=== PATIENT | male | born 1965 | race Caucasian/White ===

== ENCOUNTER 2020-05-26 12:29 | Outpatient (CLI) | payer OTHER, SELFPAY ==
--- NOTE | ~2020-05-26 | US_ITS ---
EXAMINATION:US venous doppler LE LT INDICATION:Left leg pain TECHNIQUE: Multiple grayscale, color flow and Doppler images of the left lower extremity deep venous systems were obtained and reviewed. COMPARISON:No prior studies for comparison. FINDINGS: The common femoral, superficial femoral and popliteal veins demonstrate normal respiratory variation, augmentation and compressibility. Color flow is also seen within the posterior tibial, pe roneal, greater saphenous and profunda veins. IMPRESSION: 1: No lower extremity deep venous thrombosis. Reviewed, dictated and finalized at location B.
== END 2020-05-26 12:30 | disposition home or self-care (01) ==
PROVIDERS: PCP Nurse Practitioner Family; Visit Provider Nurse Practitioner Family
DX: M79.605 Pain in left leg (principal)
CPT/HCPCS: 93971

== ENCOUNTER 2021-04-17 11:37 | Outpatient (CLI) | payer OTHER, SELFPAY ==
--- NOTE | ~2021-04-17 | XR_ITS ---
EXAMINATION: XR hip LT min 2V DATE: 04/17/2021 12:13 INDICATION: Left hip pain TECHNIQUE: Anteroposterior and frog-leg lateral views of the left hip were obtained. COMPARISON: None. FINDINGS: Alignment is normal. No fracture or suspected avascular necrosis. Left hip joint space is normal. Mil d bilateral sacroiliac osteoarthritis. Soft tissues are unremarkable. IMPRESSION: 1. Normal left hip. 2. Mild bilateral sacroiliac osteoarthritis. Reviewed, dictated and finalized at location A. [employer]
--- NOTE | ~2021-04-17 | XR_ITS ---
XR lumbar spine 2-3V DATE: 04/17/2021 12:13 INDICATION: Low back pain following fall 1 week ago TECHNIQUE: AP, lateral and coned lateral lumbosacral views COMPARISON: 06/15/2018 lumbar spine FINDINGS: Surgical clips, right upper quadrant, consistent with cholecystectomy. No fracture or bone destruction. The lumbar pedicles are intact. No spondylolisthesis. There is moderate degenerative disc disease at L1-2 and L3-4, mild degenerative disc disease at L4-5. The sacroiliac joints are normal. IMPRESSION: Mild to moderate degenerative disc disease Reviewed, dictated and finalized at location B. WEAVER
== END 2021-04-17 11:38 | disposition home or self-care (01) ==
PROVIDERS: PCP Family Medicine; Visit Provider Physician Assistant
DX: M16.12 Unilateral primary osteoarthritis, left hip (principal); M47.817 Spondylosis without myelopathy or radiculopathy, lumbosacral region
CPT/HCPCS: 72100; 73502

== ENCOUNTER 2022-05-07 09:59 | Emergency (ER) | payer OTHER, SELFPAY ==
--- NOTE | 2022-05-07 10:05 | ED.SKABFB ---
HPI - Skin/Abscess/Foreign Bdy General Chief complaint: Skin/Abscess/Foreign Body Stated complaint: spider bite Time Seen by Provider: 05/07/22 10:10 Source: patient Mode of arrival: ambulatory Limitations: no limitations History of Present Illness HPI narrative: Getachew is a 57-year-old male patient presenting to the clinic today with complaints of possible spider bite to his right elbow, right upper leg, and left 3rd middle finger. He reports symptoms started approximately 4 days ago and seemed to be spreading. States that his right knee is also swollen red and painful to touch without an open wound. Related Data Home Medications Medication Instructions Recorded Confirmed insulin glargine 100 unit/mL (3 unit subcut 05/07/22 mL) subcutaneous pen (Lantus Solostar U-100 Insulin) losartan 100 mg tablet mg 05/07/22 Allergies Allergy/AdvReac Type Severity Reaction Status Date / Time codeine Allergy Intermediate Rash Verified 05/07/22 10:08 Review of Systems Review of Systems: Pertinent positives per HPI. Patient denies any fever, chills, rash, headache, visual changes, dizziness, cough, runny nose, sore throat, shortness of breath, chest pain, palpitations, nausea, vomiting, diarrhea, constipation, abdominal pain, or any urinary issues. [facility] Family History Family History Mother Family history of pancreatic cancer Father Family history of heart disease in male family member before age 55 Social History Social History Smoking status: Heavy tobacco smoker Comments At the time of my signature, I reviewed and agree with the nursing past medical, surgical, social, and family history. There is no relevant family history pertinent to the patient complaint. Exam Narrative: General: Well-developed, well nourished, in no apparent distress Head: Normocephalic, atraumatic. Cardio: Regular rate and rhythm, s1 and s2 normal, no murmur appreciated. Resp: Clear to auscultation bilaterally, no rhonchi, rales, wheezing or rubs. Integumentary: [place], warm, and dry, open wound measuring 2 cm x 1 1/2 cm with mild induration without fluctuance to the right upper anterior leg-serous fluid draining and this was cultured. Red, tender, and indurated area measuring 3 cm x 2 cm to the right elbow without fluctuance, mild erythema, redness, tenderness with light palpation of the anterior right knee, mild redness to the left 3rd medial distal finger. Course Course Emergency Course: Portions of this record may have been created with voice recognition software. Level of Care: Express Care Visit Vital Signs Vital signs: Vital signs reviewed MDM - Skin/Abscess/Foreign Bdy MDM Narrative Medical decision making narrative: At the time of visit patient is resting comfortably on the exam table. I suspect patient may have a staph infection. Areas are not fluctuant so I do not feel it is necessary to do a incision and drainage. Culture was obtained of the right upper leg wound. Will send in prescription for doxycycline and mupirocin cream. Supportive measures were discussed with the patient and he voiced understanding of discharge instructions and agrees to treatment plan Differential Diagnosis Differential diagnosis: Likely abscess of skin or subcutaneous tissue, cellulitis, insect bites and impetigo Discharge Plan Discharge Clinical Impression: Bacterial skin infection Patient Disposition: Home, Self-Care Condition: Stable Instructions: Antibiotic Form, Cellulitis (ED) Additional Instructions: Take doxycycline 1 cap twice daily times 10 days-take it until it is all gone Apply mupirocin cream to open wound twice daily x7 days Keep wounds covered if draining Keep wounds clean and dry May take Tylenol/Motrin as needed for pain Watch for signs and symptoms of worsening infection- redness,
[2022-05-07 10:07] VITALS: BP 142/94; PULSE 83; RESP 16; TEMP 35.9; O2SAT 99
[2022-05-07 10:08] VITALS: BP 142/94; PULSE 83; RESP 16; TEMP 35.9; O2SAT 99
== END 2022-05-07 10:21 | disposition home or self-care (01) ==
PROVIDERS: Emergency Provider Nurse Practitioner Family
DX: L08.9 Local infection of the skin and subcutaneous tissue, unspecified (principal); B96.89 Other specified bacterial agents as the cause of diseases classified elsewhere; F17.200 Nicotine dependence, unspecified, uncomplicated
CPT/HCPCS: 87070; 87075; 87147; 87181; 87186; 87205; 99213; G0463

== ENCOUNTER 2022-06-05 09:31 | Emergency (ER) | payer OTHER, SELFPAY ==
--- NOTE | ~2022-06-05 | XR_ITS ---
EXAMINATION: XR humerus RT INDICATION: Right arm pain TECHNIQUE: Two views of the right humerus are obtained on four radiographs. COMPARISON: None available FINDINGS: No fracture, dislocation, or subluxation. The bones, soft tissues, and joint spaces are nor mal. IMPRESSION: 1. No acute osseous abnormality. Reviewed, dictated and finalized at location B.
[2022-06-05 09:42] VITALS: BP 152/94; PULSE 147; RESP 16; TEMP 36.6; O2SAT 99
--- NOTE | 2022-06-05 09:55 | ED.UPPEXIN ---
HPI - Extremity Injury (Upper) General Chief Complaint: Extremity Injury, Upper Stated Complaint: right arm pain Time Seen by Provider: 06/05/22 09:45 Source: patient Mode of arrival: ambulatory Limitations: no limitations History of Present Illness HPI narrative: Getachew is a 57-year-old male patient presenting to the clinic today with complaints of right shoulder/upper arm pain after falling yesterday. He reports he tripped over a sub pump in a walkway and landed on his right shoulder/arm. You were reporting that he is having some numbness and his right 3rd, 4th, and 5th fingers. Pain to the right shoulder and upper arm. No deformity noted. Denies neck pain or hitting his head. Denies loss of consciousness. Related Data Home Medications Medication Instructions Recorded Confirmed insulin glargine 100 unit/mL (3 unit subcut 05/07/22 mL) subcutaneous pen (Lantus Solostar U-100 Insulin) losartan 100 mg tablet mg 05/07/22 Allergies Allergy/AdvReac Type Severity Reaction Status Date / Time codeine Allergy Intermediate Rash Verified 06/05/22 09:59 Review of Systems Review of Systems: Pertinent positives per HPI. Patient denies any fever, chills, rash, headache, visual changes, dizziness, cough, runny nose, sore throat, shortness of breath, chest pain, palpitations, nausea, vomiting, diarrhea, constipation, abdominal pain, or any urinary issues. [facility] Family History Family History Mother Family history of pancreatic cancer Father Family history of heart disease in male family member before age 55 Social History Social History Smoking status: Heavy tobacco smoker Comments At the time of my signature, I reviewed and agree with the nursing past medical, surgical, social, and family history. There is no relevant family history pertinent to the patient complaint. Exam Narrative: General: Well-developed, well nourished, in no apparent distress Head: Normocephalic, atraumatic. Cardio: Regular rate and rhythm, s1 and s2 normal, no murmur appreciated. Resp: Clear to auscultation bilaterally, no rhonchi, rales, wheezing or rubs. Musculoskeletal: No deformity, small abrasion to the top the right shoulder, tender to palpation over the right trapezius musculature, right shoulder, and right humerus with numbness to the right 3rd, 4th, and 5th fingers, grossly normal range of motion, muscle strength strong and equal, peripheral pulse strong, no edema, no cyanosis, normal gait and station Course Course Emergency Course: Portions of this record may have been created with voice recognition software. Level of Care: Express Care Visit Vital Signs Vital signs: Vital Signs Temperature 36.6 C 06/05/22 09:42 Pulse Rate 147 H 06/05/22 09:42 Respiratory Rate 16 06/05/22 09:42 Blood Pressure 152/94 H 06/05/22 09:42 Pulse Oximetry 99 06/05/22 09:42 Oxygen Delivery Room Air 06/05/22 09:42 Temperature 36.6 C 06/05/22 09:42 Pulse Rate 147 H 06/05/22 09:42 Respiratory Rate 16 06/05/22 09:42 Blood Pressure 152/94 H 06/05/22 09:42 Pulse Oximetry 99 06/05/22 09:42 Oxygen Delivery Room Air 06/05/22 09:42 Vital signs reviewed MDM - Extremity Injury (Upper) MDM Narrative Medical decision making narrative: At the time of visit patient is resting comfortably on exam table. X-ray of the shoulder/ humerus was obtained and negative for any fracture. Patient is nontender over palpation of the cervical spine. I suspect patient has nerve inflammation due to his fall this causing the numbness in his fingers. Supportive measures were discussed with the patient he voiced understanding discharge instructions agrees to treatment plan. Differential Diagnosis Differential diagnosis: Likely dislocation of shoulder, fracture of humerus and other (Shoulder fracture, radiculopathy,
== END 2022-06-05 10:23 | disposition home or self-care (01) ==
PROVIDERS: Emergency Provider Nurse Practitioner Family
DX: M79.621 Pain in right upper arm (principal); M25.511 Pain in right shoulder; F17.200 Nicotine dependence, unspecified, uncomplicated; W18.09XA Striking against other object with subsequent fall, initial encounter
CPT/HCPCS: 73060; 99213; A4565; G0463

== ENCOUNTER 2024-01-28 08:44 | Emergency (ER) | payer OTHER, SELFPAY ==
[2024-01-28 08:53] VITALS: BP 144/91; PULSE 93; RESP 19; TEMP 36.9; O2SAT 98
--- NOTE | 2024-01-28 09:01 | ED_ITS ---
HPI - Skin/Abscess/Foreign Bdy General Chief complaint: Skin/Abscess/Foreign Body Stated complaint: Right Arm/Elbow Sores Time Seen by Provider: 01/28/24 09:00 Source: patient Mode of arrival: ambulatory Limitations: no limitations History of Present Illness HPI narrative: Getachew is a 58-year-old male patient presenting to the clinic today with complaints sores to the right forearm as well as painful elbow. He reports his elbow has been painful for the past couple weeks however he has developed a sore to the right posterior forearm that has popped and was draining some yellow discharge. He reports the areas are very tender to touch and very inflamed. He denies any fevers, chills, or body aches. Related Data Home Medications Medication Instructions Recorded Confirmed glimepiride 4 mg tablet 4 mg PO QAM 06/18/22 01/28/24 pantoprazole 40 mg granules 40 mg PO DAILY 06/18/22 01/28/24 delayed-release for susp in packet Allergies Allergy/AdvReac Type Severity Reaction Status Date / Time codeine Allergy Intermediate Rash Verified 01/28/24 08:46 Review of Systems Review of Systems: Pertinent positives per HPI. Patient denies any fever, chills, headache, visual changes, dizziness, cough, runny nose, sore throat, shortness of breath, chest pain, palpitations, nausea, vomiting, diarrhea, constipation, abdominal pain, or any urinary issues. [facility] Past Medical History Medical History Anxiety Essential hypertension Hepatitis C Hyperlipidemia Insulin dependent type 2 diabetes mellitus Peripheral arterial disease Stimulant abuse Family History Family History Mother Family history of pancreatic cancer Father Family history of heart disease in male family member before age 55 Social History Social History Smoking status: Heavy tobacco smoker Lack of Transportation: No Lack of Food: Never True Current Housing: I Have Housing Concerned About Future Housing: No Difficulty Paying Gas/Electric Bills: No Difficulty Paying for Meds: No Currently Unemployed: No Education: High School Diploma/GED Difficulty w/ Childcare or Family Care: No Comments At the time of my signature, I reviewed and agree with the nursing past medical, surgical, social, and family history. There is no relevant family history pertinent to the patient complaint. Exam Narrative: General: Well-developed, well nourished, in no apparent distress Head: Normocephalic, atraumatic. Cardio: Regular rate and rhythm, s1 and s2 normal, no murmur appreciated. Resp: Clear to auscultation bilaterally, no rhonchi, rales, wheezing or rubs. Integumentary: [place], warm, and dry, red, raised, erythema,non-fluctuant area to the right posterior forearm, 3 additional scabbed over sores to the right pos terior forearm, mild redness and swelling noted over the right elbow with tenderness to palpation and mild fluctuantion-possible infected bursitis. Course Course Emergency Course: Portions of this record may have been created with voice recognition software. Level of Care: Express Care Visit Vital Signs Vital signs: Vital Signs Temperature 36.9 C 01/28/24 08:53 Pulse Rate 93 01/28/24 08:53 Respiratory Rate 19 01/28/24 08:53 Blood Pressure 144/91 H 01/28/24 08:53 Pulse Oximetry 98 01/28/24 08:53 Oxygen Delivery Room Air 01/28/24 08:53 Temperature 36.9 C 01/28/24 08:53 Pulse Rate 93 01/28/24 08:53 Respiratory Rate 19 01/28/24 08:53 Blood Pressure 144/91 H 01/28/24 08:53 Pulse Oximetry 98 01/28/24 08:53 Oxygen Delivery Room Air 01/28/24 08:53 Vital signs reviewed MDM - Skin/Abscess/Foreign Bdy MDM Narrative Medical decision making narrative: At the time of visit patient is resting comfortably on the exam table. Patient appears to be nontoxic. Plan: I suspect patient has a bacterial skin infection to the right forearm and possible infected bursitis. Will place the patient on clindamycin and mupirocin cream. Supportive measures were discussed with the patient and they voiced understanding discharge instructions and agrees to treatment plan. Return precautions reviewed Discharge Plan Discharge Clinical Impression: Bacterial skin infection Patient Disposition: Home, Self-Care Condition: Stable Instructions: Antibiotic Form, Wound Infection (ED) Additional Instructions: Keep wound clean and dry May apply warm compress to the affected area to help alleviate pain and bring to head to allow to drain May take Tylenol/Motrin as needed for pain or fever Take clindamycin as prescribed Apply mupirocin cream as prescribed Follow-up with your primary care doctor next week for recheck. If symptoms worsen recommend going to the emergency room for further evaluation Prescriptions: New clindamycin HCl 300 mg capsule 300 mg PO Q8H 10 Days Qty: 30 0RF mupirocin 2 % ointment 1 applic topical BID 7 Days Qty: 22 0RF No Action glimepiride 4 mg tablet 4 mg PO QAM Rx Instructions: administer with breakfast pantoprazole [address] for susp in packet 40 mg PO DAILY insulin glargine [Lantus Solostar U-100 Insulin] 100 unit/mL (3 mL) insulin pen 55 unit subcut QPM Qty: 15 1RF metformin 500 mg tablet 1,000 mg PO BID Qty: 120 5RF Rx Instructions: week one, take one pill bid with meals. Thereafter, 2 pills bid with meals Rybelsus 7 mg tablet 7 mg PO DAILY Qty: 30 0RF Rx Instructions: month 2 Rybelsus 14 mg tablet 14 mg PO DAILY Qty: 30 5RF Rx Instructions: month 3 and thereafter. losartan 100 mg tablet 100 mg PO DAILY Qty: 30 5RF atorvastatin 20 mg tablet 20 mg PO DAILY Qty: 30 5RF (DME) pen needle, diabetic [BD Ultra-Fine Short Pen Needle] 31 gauge x 5/16 needle See Rx Instructions .Route Qty: 100 2RF Rx Instructions: Use to inject Insulin Follow-up/Referrals: Gt Galvez DO [Primary Care Provider] - Time of Disposition: 09:02 Quality NIHSS Nursing Documentation ED NIHSS nursing documentation: reviewed/agree
== END 2024-01-28 09:08 | disposition home or self-care (01) ==
PROVIDERS: Emergency Provider Nurse Practitioner Family; PCP Internal Medicine
DX: L08.9 Local infection of the skin and subcutaneous tissue, unspecified (principal); B96.89 Other specified bacterial agents as the cause of diseases classified elsewhere; F17.290 Nicotine dependence, other tobacco product, uncomplicated; I10 Essential (primary) hypertension; E78.5 Hyperlipidemia, unspecified; E11.9 Type 2 diabetes mellitus without complications; Z79.4 Long term (current) use of insulin; Z79.84 Long term (current) use of oral hypoglycemic drugs; I73.9 Peripheral vascular disease, unspecified
CPT/HCPCS: 99213; G0463